=== PATIENT | female | born 1975 | race Caucasian/White ===

== ENCOUNTER 2017-09-18 08:44 | Day surgery (SDC) | payer MEDICAID, OTHER ==
[~2017-09-18] VITALS: Ht 170.2 cm; Wt 141.1 kg
[2017-09-18 09:16] LABS: HCG,QUAL RESULT NEGATIVE (NEGATIVE)
[2017-09-18] MEDS ORDERED: SEVOFLURANE 15 MIN GAS INH ONE (10:35)
[2017-09-18] MEDS ORDERED: fentaNYL CITRATE/PF 100 MCG/2 ML AMP IVP ONE (10:35)
[2017-09-18] MEDS ORDERED: MIDAZOLAM HCL 5 MG/5 ML VIAL IVP ONE (10:35)
[2017-09-18] MEDS ORDERED: PROPOFOL 200MG/ 20ML VIAL (DIPRIVAN) IV ONE (10:35)
[2017-09-18] MEDS ORDERED: fentaNYL CITRATE/PF 100 MCG/2 ML AMP IVP PRN (11:15)
[2017-09-18] MEDS ORDERED: MIDAZOLAM HCL 2 MG/2 ML VIAL (VERSED) IVP PRN (11:15)
[2017-09-18] MEDS ORDERED: ONDANSETRON HCL 4 MG/2 ML VIAL IVP PRN (11:15)
[2017-09-18] MEDS ORDERED: MIDAZOLAM HCL 2 MG/2 ML VIAL (VERSED) ONE (11:23)
[2017-09-18] MEDS ORDERED: fentaNYL CITRATE/PF 100 MCG/2 ML AMP ONE (11:37)
[2017-09-18 17:24] VITALS: BP_SYST 120
== END 2017-09-18 13:02 | disposition home or self-care (01) ==
LOC: SDS 08:44
PROVIDERS: ATTEND Otolaryngology
DX: H65.02 Acute serous otitis media, left ear (principal); E66.01 Morbid (severe) obesity due to excess calories
CPT/HCPCS: 69424; 84703; J2250; J2704; J3010; J3465